=== PATIENT | female | born 1945 | race Two or more races ===

== ENCOUNTER 2020-07-20 06:15 | Inpatient (IN) | payer OTHER ==
[~2020-07-20] VITALS: Ht 152.4 cm; Wt 44.5 kg
[2020-07-20] MEDS ORDERED: NEURIN SL (07:05)
[2020-07-20] MEDS ORDERED: SYNTHROID88 MCG (07:05)
[2020-07-29] MEDS ORDERED: INTESTINEX680 M1 (14:05)
[2020-07-29] MEDS ORDERED: SIMVASTATIN40 MG (14:06)
[2020-07-29] MEDS ORDERED: FENOFIBRATE160 MG (14:06)
[2020-07-29] MEDS ORDERED: PANTOPRAZOLE SO40 MG (14:06)
[2020-07-29] MEDS ORDERED: ABANEU-SL TABL1 EACH (14:07)
[2020-08-02] MEDS ORDERED: ELIQUIS2.5 MG PO (10:37)
[2020-08-02] MEDS ORDERED: FLUCONAZOLE200 MG PO (10:38)
== END 2020-08-02 11:35 | disposition home or self-care (01) | DRG 395 ==
LOC: ER 06:15 → SURG 12:07 → SURH 07-23 11:56
PROVIDERS: ADMIT Surgery; ATTEND Surgery
PROC: 0DBP7ZX Excision of Rectum, Via Natural or Artificial Opening, Diagnostic (ICD-10-PCS; principal; 2020-07-22 14:00)
PROC: B54MZZZ Ultrasonography of Right Upper Extremity Veins (ICD-10-PCS; 2020-07-29)
DX: K61.1 Rectal abscess (principal); M06.9 Rheumatoid arthritis, unspecified; E03.8 Other specified hypothyroidism; Z20.822 Contact with and (suspected) exposure to COVID-19; D47.3 Essential (hemorrhagic) thrombocythemia; I80.8 Phlebitis and thrombophlebitis of other sites; D46.Z Other myelodysplastic syndromes

== ENCOUNTER 2020-12-17 05:55 | Day surgery (SDC) | payer OTHER ==
[~2020-12-17 05:55] MED LIST: ABANEU-SL TABL1 EACH; ELIQUIS2.5 MG PO; FENOFIBRATE160 MG; FLUCONAZOLE200 MG PO; INTESTINEX680 M1; NEURIN SL; PANTOPRAZOLE SO40 MG; SIMVASTATIN40 MG; SYNTHROID88 MCG
== END 2020-12-17 09:40 | disposition home or self-care (01) ==
LOC: AMB-ENDOS 05:55
PROVIDERS: ATTEND Surgery
DX: K62.89 Other specified diseases of anus and rectum (principal); Z20.822 Contact with and (suspected) exposure to COVID-19